=== PATIENT | male | born 1965 | race Caucasian/White ===

== ENCOUNTER 2018-11-15 11:06 | Emergency (ER) | payer OTHER ==
[~2018-11-15] VITALS: Ht 190.5 cm; Wt 122.5 kg
[2018-11-15] MEDS ORDERED: KETOROLAC TROMETHAMINE 60 MG/2 ML VIAL IM ONE (12:30)
--- NOTE | 2018-11-15 15:35 | Diagnostic Imaging Report ---
Exam: Lumbar spine 2 views History: Low back pain radiating to right leg Comparison: None. 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 Rudimentary ribs project from what will be referred to as T12 for purposes of this examination. No acute, displaced fracture or subluxation. Intervertebral disc spaces are well-maintained. Alignment is within normal limits. Bilateral facet arthropathy at L5-S1. Sacroiliac joints are intact. Sacral foramina are intact superiorly. The inferior sacrum and coccyx are not included on the examination. Surgical clips project over the right upper quadrant, likely related to prior cholecystectomy.. Impression: No acute osseous abnormality. Transitional lumbosacral anatomy with bilateral facet arthropathy at L5-S1. Signed by: Dr. Camden Davison M.D. on 11/15/2018 3:31 PM
[2018-11-15] MEDS ORDERED: TYLENOL WITH C1 EACH PO (16:15)
[2018-11-15] MEDS ORDERED: VALIUM2 MG PO (16:15)
== END 2018-11-15 16:24 | disposition home or self-care (01) ==
LOC: ER 11:06
DX: M54.5 Low back pain (principal); M54.16 Radiculopathy, lumbar region; I10 Essential (primary) hypertension
CPT/HCPCS: 72100; 99283; J1885